=== PATIENT | male | born 1965 | race Caucasian/White ===

== ENCOUNTER 2022-12-13 09:43 | Outpatient (REF) | payer BC, SELFPAY ==
[2022-12-13 13:23] LABS: MANUAL DIFF FLAG NO
[2022-12-13 13:36] LABS: Basophils Percent Auto 0.6 % (0-2); Eosinophils Absolute Auto 0.3 X10*3/uL (0.0-0.4); Eosinophils Percent Auto 4.2 % (0-4); Hemoglobin 14.4 g/dl (14.0-18.0); Imm Gran Abs Auto 0.02 X10*3/uL (0.00-0.03); Imm Gran Pct Auto 0.3 % (0.0-0.4); Lymphocytes Absolute Auto 1.5 X10*3/uL (1.2-4.9); Lymphocytes Percent Auto 24.5 % (20-40); Mean Corpuscular HGB Conc 34.3 g/dl (31.0-36.0); Mean Corpuscular Hemoglobin 28.3 pg (27.0-33.0); Mean Corpuscular Volume 82.7 fL (80.0-98.0); Mean Platelet Volume 11.9 fL (9.4-12.4); Monocytes Absolute Auto 0.5 X10*3/uL (0.1-1.2); Monocytes Percent Auto 8.2 % (2-11); Neutrophils Absolute Auto 3.9 x10*3/uL (2.0-8.3); Neutrophils Percent Auto 62.2 % (45-73); Platelet Count 293 X10*3/uL (160-400); Red Blood Count 5.08 X10*6/uL (4.60-5.80); Red Cell Distribution Width 13.4 % (11.0-16.0); White Blood Count 6.3 X10*3/uL (4.8-10.8)
[2022-12-13 13:50] LABS: Alanine Aminotransferase 22 U/L (0-40); Albumin Level 4.5 g/dL (3.5-5.0); Alkaline Phosphatase 77 U/L (39-117); Anion Gap 14 (12-20); Aspartate Amino Transferase 22 U/L (5-37); Bilirubin Total 0.5 mg/dL (0.0-1.0); Blood Urea Nitrogen 12 mg/dL (9-16); Calcium 9.8 mg/dL (8.4-10.2); Carbon Dioxide 25 mmol/L (22-29); Chloride 106 mmol/L (96-108); Estimated Glomerular Filt Rate > 60; Glucose Random 96 mg/dL (60-115); Potassium 4.4 mmol/L (3.3-5.1); Sodium 141 mmol/L (135-145); Total Protein 7.2 g/dL (6.5-8.0); Uric Acid 5.1 mg/dL (3.4-7.0)
[2022-12-13 14:12] LABS: Prostate Specific Antigen 0.73 ng/mL (<0.05-4.0)
== END 2022-12-13 09:44 | disposition home or self-care (01) ==
LOC: HO.MANLDS 09:43
PROVIDERS: Visit Provider Physician Assistant
DX: Z12.5 Encounter for screening for malignant neoplasm of prostate (principal); I10 Essential (primary) hypertension; M10.00 Idiopathic gout, unspecified site
CPT/HCPCS: 36415; 80053; 84153; 84550; 85025

== ENCOUNTER 2024-04-16 11:00 | Outpatient (REF) | payer BC, SELFPAY ==
[2024-04-16 13:41] LABS: MANUAL DIFF FLAG NO
--- OUTSIDE RECORDS SUMMARY | 2024-04-16 13:42 | XMS_ITS | Encounter Summary ---
Author Name [facility] [facility] Address [address] [place] [address] Care Team Providers Care Lisw Name Role Phone CRISPIN BRAVO Primary Care Provider Unavaila ble Insurance Providers: All historical and current Section Date Range: From patient's date of to the date document was created. This section includes the names of all active insurance providers for the patient. Insurance Provider Type of Coverage Plan Name Start of Policy Coverage End of Policy Coverage Group Number Member ID Insurance Provider's Telephone Number Policy Garcia's Name Patient's Relationship to Policy Garcia [facility] CE ORGANIZAT ION [facility] MATER IALS Jun 05, 2017 [id number] JAMES LIN JR PATIENT ANTHEM BCBS OF [facility] CE ORGANIZ [facility] ASPHA LT Jun 05, 2017 [id number] JAMES LIN JR PATIENT ANTHEM BCBS OF [facility] (BLUECARD) [facility] CE ORGANIZAT ION [facility] MATER IALS Jun 05, 2017 [id number] JAMES LIN JR PATIENT BCBS [facility] CE ORGANIZAT ION [facility] CONST RUCT Jun 05, 2017 [id number] JAMES LIN JR PATIENT [place] PRESCRIPT ION [place] Feb 13, 2022 [id number] LIEN LIN PATIENT [place] PRESCRIPT [facility]ON [facility] Jun 05, 2017 [id number] JAMES LIN JR PATIENT Selected Encounter This section includes the information on record at [place] for the Encounter. Date/Time Encounter Type Encounter Description Reason Provider Source Apr 03, 2024 10:29 AM NQHP OL DIG ASSMT&MGMT 5-10 CLINICAL PHARMACY ICD-10-CM R04.0 Epistaxis DEB COLE Encounter Template Text not used by [place] Assessments - Encounter Diagnoses This section includes the primary and secondary diagnoses documented for the Encounter. Date/Time Primary/Secondary Diagnosis Diagnosis Name Provider Source Apr 03, 2024 10:30 AM PRIMARY Epistaxis DEB COLE RHINEBECK Plan of Treatment: Future Appointments (+ 6 months) and Future Tests (+/- 45 days) The Plan of Treatment section includes future care activities for the patient from all [place] treatmentfacilities. This section includes future appointments and future orders which are active, pending or scheduled. Future Appointments This section includes appointments that were scheduled to occur 6 months from the date of the Encounter, up to a maximum of 20 appointments. The data comes from all [place] treatment facilities. Appointment Date/Time Appointment Type Appointme nt Facility Name Apr 12, 2024 08:00 AM AMBULATORY - REHAB [facility] May 08, 2024 09:00 AM AMBULATORY - REH[facility] MEDICIN E [facility] Encounter Notes: All associated encounter notes This section contains the clinical notes associated to the Encounter. Date/Time Encounter Note(s) Provider Source Apr 03, 2024 10:29 AM MEDICATION MGT CON SULT: LOCAL TITLE: CONSULT REPORT/NON FORMULARY PADR STANDARD TITLE: MEDICATION MGT CONSULT DATE OF NOTE: APR 03, 2024@10:29 ENTRY DATE: APR 03, 2024@10:30 AUTHOR: DEB COLE EXP COSIGNER: URGENCY: STATUS: COMPLETED The medical record has been reviewed with regard to this restricted drug request. Medication requested: SODIUM CHLORIDE NASAL GEL Medication indication: Epistaxis Medical history relevant to this request: Followed by ENT. Requesting both spray + gel. The request is approved - A documented therapeutic failure of the preferred formulary alternative(s) exists /jozef/ Deb Cole PharmD Clinical Pharmacy Practitioner Signed: 04/03/2024 10:30 DEB COLE
--- OUTSIDE RECORDS SUMMARY | 2024-04-16 13:42 | XMS_ITS | Continuity of Care Document ---
Author Organization [facility] Address [address] [place] [address] [place] [address] Assessment No assessment recorded. Plan of Treatment Reminders Order Date Submit Date Provider Last Modified By Organization Details Last Modified Time Details Appointments FOLLOW UP 15 2024 10:45A M WANDY ROMAN Not available Not available Not available Lab PSA, total + free, serum or plasma 2024 025 [facility], [address] [place] [address], [id number], 04/16/2024 10:46:45 CMP, serum or plasma 2024 025 [facility], [address] [place] [address], [id number], 04/16/2024 10:46:45 CBC w/ auto diff 2024 025 [facility], [address] [place] [address], [id number], 04/16/2024 10:46:45 lipid panel, blood 2024 025 [facility], [address] [place] [address], [id number], 04/16/2024 10:53:17 hemoglobi n A1c, QN, blood 2024 025 [facility], [address] [place] [address], [id number], 04/16/2024 10:46:45 Referral None recorded. Procedures None recorded. Surgeries None recorded. Imaging None recorded. Medication Orders lisinopri l 5 mg tablet 2024 025 [facility] [place], [id number], 04/16/2024 10:44:29 Patient TargetsNo targets recorded. Patient InstructionsNo instructions recorded. Reason for Referral None Reported. Problems Name Problem SNOMED Code Status Onset Date Resolution Date Notes Provider Name and Address Organization Details Recorded Time Osteoart [facility]ritis 310399030 [facility] 8 16:37:03 Hypercho lesterol emia 02808250 Active 2017 Vandana toscano [facility] 8 16:37:15 Gout 16222900 Active 2017 [facility] 8 16:37:21 Blood in urine 71184178 [facility] 8 16:37:34 Solitary nodule of lung 961393050 Active 2018 4 mm incidenta lly seen on CT of abd/pelv done by maggie [address], [address], [facility] 9 14:10:00 Microsco pic hematuri a 975969249 Active 2018 has had urologic work up [address], [address], [facility] 9 10:21:09 Body mass index 25-29 - overweig ht 573104663 Active [address], [address], [facility] 9 10:26:41 [facility] hyperten wendy 01282181 Active 12/10/ 2019 Margarita Katrin, [address], [address], [facility] 9 10:26:44 Problem Notes None recorded. Procedures Surgical History Date Name Laterality Status Provider Name and Address Organization Details Recorded Time Remove tonsils and adenoids completed Margarita [facility] [address], [address], [facility] 01/22/2019 10:25:49 Knee arthroscopy/s urgery completed Margarita [address], [address], [facility] 01/22/2019 10:25:59 Imaging Results None recorded. Procedure Notes None recorded. Medical Equipment None Reported. Allergies Allergen ID Allergen Name Allergen Category Reaction Reaction Severity Criticality Documentation Date Start Date Code Code System Note Provider Name and Address Organization Details Recorded Time 2458 pravastat in medicatio n confusion Not available Not available 12/08/2017 74147 RxNorm memor y loss [facility] 8 15:39:32 Medications Name Sig Start Date Stop Date Status Note LastModified by Organization Details LastModified Time allopurinol 300 mg tablet TAKE 1 TABLET BY MOUTH ONCE DAILY active Not Available Not Available No t Available pravastatin 20 mg tablet TAKE ONE TABLET BY MOUTH ONCE DAILY 12/08 completed Not Available Not Available Not Available lisinopril 5 mg tablet TAKE 1 TABLET BY MOUTH ONCE DAILY 2024 active Not Available Not Available Not Avai lable Aleve Take two tablets once a day active Not Available Not Available No t Available Fish Oil 680mg Take one tablet once a day active Not Available Not Available No t Available multivitami n qd active Not Available Not Available Not Available CoQ-10 Take one tablet once a day 01/01 completed Not Available Not Available Not Available Probiotic Take one tablet once a day active Not Available Not Available No t Available Shingrix (PF) 50 mcg/0.5 mL intramuscul ar suspension, kit PHARMACIS T ADMINISTE RED IMMUNIZAT ION ADMINISTE RED AT TIME OF DISPENSIN G 12/26 completed Not Available Not Available Not Available Vitals Date Recorded Body height Body mass index (BMI) Body weight Heart rate Oxygen saturation Oxygen saturation in Arterial blood by Pulse oximetry Systolic blood pressure Diastolic blood pressure Provider Name and Address Organization Details Last Updated DateTime 5 172.72 cm 29.2 kg/m2 40647.7 4 g 66 /min 98 % 98 % 118 mm[Hg] 66 mm[Hg] Mando Angulo [facility] 5 10:38:53 Social History Question Answer Notes LastModified by Organizat ion Details LastModified Time Tobacco Smoking Status Former Smoker Not Available [employer] 12/17/2019 03:36:23 Do You Or Have You Ever Used E-cigarettes Or Vape? Never Used Electronic Cigarettes [email or web address] Information not available 04/23/2021 What Was The Date Of Your Most Recent Tobacco Screening? 04/16/2024 [email or web address] Information not available 04/16/2024 Do You Or Have You Ever Used Smokeless Tobacco? Former Smokeless Tobacco User [email or web address] Information not available 04/23/2021 How Much Tobacco Do You Smoke? 1 [id number] [id number] Information not available 12/17/2019 How Many Years Have You Smoked Tobacco? 15 [id number] Information not available 12/17/2019 Sex: Unknown Functional Status None recorded. Mental Status None recorded. Family History Relationship Description Onset Age of this Age Resolved Age Notes LastModified by Organization Details LastModified Time Unspecified Relation Coronary arterioscler osis Not early onset [email or web address] Not available 01/21/2019 16:55:55 Medical History No medical history recorded. Immunizations Vaccine Type Date Status Note Provider Nam e and Address Organization Details Recorded Time Tdap 4 completed Vandana toscano [facility] 11/01/2017 12:03:52 Influenza, split virus, quadrivalent, preservative 4 completed Sonam Gencarelle [place] [facility] 04/23/2021 13:23:52 zoster recombinant 0 completed Sonam Gencarelle [place] [facility] 04/23/2021 13:23:52 zoster, unspecified formulation 1 completed Sonam Gencarelle [place] [facility] 04/23/2021 13:23:52 Past Encounters Encounter ID Performer Location Encounter Start Date Encounter Closed Date Diagnosis/Indication Diagnosis SNOMED-CT Code Diagnosis ICD10 Code Diagnosis Note [id number] WANDY ROMAN [facility] [address] [facility],[address] [address] 04/16/2024 10:29:14 04/16/2024 10:48:47 Essential hypertension 14713872 I10 BP good todayrecom mended fu bw, overdue, hasn't had it drawn in two years Screening for malignant neoplasm of prostate 859747530 Z12.5 needs routine screening for his PSA Diabetes m ellitus screening 127714194 Z13.1 screening check Health Concerns Section Related Observation LastModified by Organization Detai ls LastModified Time None Recorded Concern Status LastModified by Organization Details LastModified Time None Recorded Payers Encounter Date Sequence Insurance Name Policy Number Policy Garcia Covered Member ID Garcia Member ID Guarantor Name 04/16/2024 1 [facility]: [facility] [id number] Elan Rendon [id number] Elan Rendon Notes Date Note Type Note Provider Name a nd Address Organization Details Recorded Time 04/16/2024 text/html f/u BP HTN: today in the office the patient BP is 118/66 L arm sitting the patient is doing well on the BP medication with no side effects and no adjustment of their medications needed today at the appointment well-controlled on medication denies chest pain, sob, ankle swelling, orthopnea, palpitations needs routine screening BW, patient agrees, given order to bring to our lab to have drawn no questions or concerns today at this time WANYD ROMAN [address] [facility] [facility], [place], [address], [facility] 04/16/2024 10:48:46
--- OUTSIDE RECORDS SUMMARY | 2024-04-16 13:42 | XMS_ITS | Encounter Summary ---
Author Name [facility] [place] [facility] [place] Address [address] [place] [address] Care Team Providers Care Computer Repairer Name Role Phone GONZALO BRAVO Primary Care Provider Unavaila ble Insurance [...] Garcia's Name Patient's Relationship to Policy Garcia [facility]LY [facility] CE ORGANIZAT ION [facility] MATER IALS Jun 05, 2017 [id number] [phone] JAMES LIN JR PATIENT ANTHEM [facility] CE ORGANIZ [facility] ASPHA LT Jun 05, 2017 [id number] JAMES LIN JR PATIENT ANTHEM [facility] CE ORGANIZAT ION [facility] MATER IALS Jun 05, 2017 [id number] JAMES LIN JR [facility] CONST RUCT Jun 05, 2017 [id number] JAMES LIN JR PATIENT [place] PRESCRIPT ION [place] Feb 13, 2022 [id number] [phone] LIEN LIN PATIENT [place] PRESCRIPT [facility]ON [facility] Jun 05, 2017 [id number] [phone] JAMES LIN JR PATIENT Selected Encounter This section includes the information on record at [place] for the Encounter. Date/Time Encounter Type Encounter Description Reason Provider Source Feb 05, 2024 08:30 AM OFFICE O/P EST HI 40 MIN PRIMARY CARE/MEDICINE ICD-10-CM H93.12 Tinnitus, left ear BRAVO,RODGER Araiza IHE Encounter Template Text not used by [place] Assessments - Encounter Diagnoses This section includes the primary and secondary diagnoses documented for the Encounter. Date/Time Primary/Secondary Diagnosis Diagnosis Name Provider Source Mar 03, 2024 12:51 PM PRIMARY Tinnitus, left ear BRAVO,WILL SUKHWINDER J [place] [facility] [place] [facility] Mar 03, 2024 12:51 PM SECONDARY Essential (primary) hypertension [facility] [place] [facility] Mar 03, 2024 12:51 PM SECONDARY Gout, unspecified BRAVO,WILL SUKHWINDER J [place] [facility] [place] [facility] Mar 03, 2024 12:51 PM SECONDARY Hyperlipidemia, unspecified BRAVO,WILL SUKHWINDER J [place] [facility] [place] [facility] Mar 03, 2024 12:51 PM SECONDARY Tobacco use BRAVO,WILL [facility] [place] [facility] Plan of Treatment: Future Appointments (+ 6 months) and Future Tests (+/- 45 days) The Plan of Treatment section includes future care activities for the patient from all [place] treatmentfacilities. This section includes future appointments and future orders which are active, pending or scheduled. Future Appointments This section includes appointments that were scheduled to occur 6 months from the date of the Encounter, up to a maximum of 20 appointments. The data comes from all [place] treatment facilities. Appointment Date/Time Appointment Type Appointme nt Facility Name Feb 27, 2024 09:30 AM AMBULATORY - MEDICINE [facility] [place] [facility] Apr 03, 2024 09:00 AM AMBULATORY - MEDICINE [facility] [place] [facility] Apr 12, 2024 08:00 AM AMBULATORY - [place]ICIN [place] [facility] [place] [facility] May 08, 2024 09:00 AM AMBULATORY - REHAB MEDICIN E [facility] Lab Results: +/- 30 days of the encounter This section includes the Chemistry and Hematology Lab Results on record with [facility] for the patient. Radiology Reports and Pathology Reports are provided separately, in subsequent sections. Lab Results This section contains the Chemistry/Hematology Results that were resulted 30 days before or 30 daysafter the date of the Encounter. Date/Time Source Result Type Result - Unit Interpretation Reference Range Comment Feb 05, 2024 09:00 AM [facility] HEPATITIS B SURFACE ANTIBODY (HBsAb)-WH Specimen Type: SERUM No comment entered. Ordering Provider: ANGELICA BRAVO Report Released Date/Time: Jan 23, 2024 04:02 PM Reporting Lab: [address] [address] Performing Lab: [address] [address] HBsAb Non Reactive Non Reactive Feb 05, 2024 09:00 AM [facility] CBC Specimen Type: BLOOD No comment entered. Ordering Provider: ANGELICA BRAVO Report Released Date/Time: Jan 23, 2024 04:02 PM Reporting Lab: [address] [address] Performing Lab: [address] [address] WBC 7.95 10*3/uL 4.50-11.00 RBC 5.14 10*6/uL 4.23-5.66 HGB 14.9 g/dL 12.8-17 HCT 42.4 39.2-50.4 MCV 82.5 fL 82-99 MCHC 35.1 g/dL 30.8-35.1 PLT 298 10*3/uL 140-360 RDW-CV 12.7 12.0-16.0 MCH 29.0 pg 26.2-32.6 Feb 05, 2024 09:00 AM [facility] BASIC METABOLIC PANEL (non-fasting) Specimen Type: SERUM No comment entered. Ordering Provider: ANGELICA BRAVO Report Released Date/Time: Jan 23, 2024 04:02 PM Reporting Lab: [facility] [address] [address] Performing Lab: [facility] [address] [address] UREA NITROGEN 17 mg/dL 7-25 GLUCOSE 88 mg/dL 65-100 SODIUM 139 mmol/L 135-145 POTASSIUM 4.8 mmol/L 3.5-5.0 CHLORIDE 104 mmol/L 100-110 CO2 26 meq/L 20-30 CREATININE, Serum 0.94 mg/dL 0.50-1.40 eGFR(CKD-EPI 2020) >90 mL/min >60 Feb 05, 2024 09:00 AM [facility] LIPID PANEL, NON FASTING Specimen Type: SERUM No comment entered. Ordering Provider: ANGELICA BRAVO Report Released Date/Time: Jan 23, 2024 04:02 PM Reporting Lab: [address] [address] Performing Lab: [address] [address] CHOLESTEROL 264 mg/dL H TRIGLYCERIDE 214 mg/dL H 0-150 LDL calculated 171 mg/dL H 0-129 CHOL/HDL 5.3 HDL CHOLESTEROL 50 mg/dL 40-60 Feb 05, 2024 09:00 AM [facility] LIVER FUNCTION Specimen Type: SERUM No comment entered. Ordering Provider: ANGELICA BRAVO Report Released Date/Time: Jan 23, 2024 04:02 PM Reporting Lab: [facility] [address] [address] Performing Lab: [address] [address] PROTEIN,TOTAL 7.3 g/dL 6.0-8.3 ALBUMIN 4.3 g/dL 3.5-5.0 ALKALINE PHOSPHATASE 67 U/L 40-150 AST 21 U/L 5-34 ALT 24 U/L BILIRUBIN, TOTAL 0.5 mg/dL 0.2-1.2 Feb 05, 2024 09:00 AM [facility] PSA Specimen Type: SERUM No comment entered. Ordering Provider: ANGELICA BRAVO Report Released Date/Time: Jan 23, 2024 04:02 PM Reporting [facility]: [facility] [address] [address] Performing Lab: [facility] [address] [address] PSA 0.81 ng/mL 0.00-4.00 Vital Signs: All taken on the encounter date This section contains inpatient and outpatient Vital Signs collected on the date of the Encounter. Date/Time Temperature Pulse Blood Pressure Respiratory Rate SP02 Pain Height Weight Body Mass Index Source Feb 05, 2024 08:44 AM 138/78 [place] [facility] [facility] Feb 05, 2024 08:20 AM 97.6 72 140/89 20 100 0 68 192 29 [place] [facility] Social History: Smoking Status (Most current) and Tobacco Use (All prior to encounter date) This section includes the most current, and the historical, smoking and tobacco- related health factors from the [place] facility where the Encounter took place. Current Smoking Status This section includes the most current smoking, or tobacco-related health factor, from the [place] facility where the Encounter took place. Date/Time Current Smoking Status Comment Maday trejo Feb 05, 2024 08:30 AM VA-TOBACCO USE FOR AME CIGARETTES [facility] Tobacco Use History This section includes a history of the smoking, or tobacco-related health factors, that were collected on or before the date of the Encounter. The data comes from the [place] facility where the Encounter took place. Date/Time Smoking Status/Tobacco Use Comment F acblanca Feb 05, 2024 08:30 AM VA-TOBACCO USE FOR AME CIGARETTES [place] [facility] [place] [facility] Feb 02, 2023 08:30 AM VA-TOBACCO FORMER USER [place] [facility] [place] [facility] Feb 02, 2023 08:30 AM VA-TOBACCO QUIT 15 YRS OR MORE [place] [facility] Jan 28, 2022 08:30 AM VA-TOBACCO FORMER USER [place] [facility] [place] [facility] Jan 28, 2022 08:30 AM VA-TOBACCO QUIT 5 TO < 15 YRS [facility] [place] [facility] Jan 29, 2021 08:30 AM VA-TOBACCO FORMER USER [place] [facility] [place] [facility] Jan 29, 2021 08:30 AM VA-TOBACCO QUIT 5 TO < 15 YRS [facility] [place] [facility] Feb 22, 2019 01:36 PM VA-TOBACCO FORMER USER [facility] [place] [facility] Feb 22, 2019 01:36 PM VA-TOBACCO QUIT 5 TO < 15 YRS [place] [facility] [place] [facility] Encounter Notes: All associated encounter notes This section contains the clinical notes associated to the Encounter. Date/Time Encounter Note(s) Provider Source Feb 05, 2024 08:41 AM PRIMARY CARE NURSE PRACTITIONER OUTPATIENT NOTE: LOCAL TITLE: NURSE PRACTITIONER OUTPATIENT NOTE STANDARD TITLE: PRIMARY CARE NURSE PRACTITIONER OUTPATIENT NOTE DATE OF NOTE: FEB 05, 2024@08:41 ENTRY DATE: FEB 05, 2024@08:41:14 AUTHOR: GONZALO BRAVO COSIGNER: URGENCY: STATUS: COMPLETED Chief complaint: Patient is a 58 year old . HPI: Pleasant male here to follow up, comes yearly, has non va PCP. Allergies: PRAVASTATIN The following VA and Non-VA meds were reconciled with patient. The patient was educated on the use of the medications including indication and side effects. Active and Recently Outpatient Medications (excluding Supplies): Active Non-VA Medications Status === 1) Non-VA ALLOPURINOL 300MG TAB 300MG BY MOUTH ONCE DAILY ACTIVE 2) Non-VA FISH OIL 1000MG (500MG DHA/EPA) CAP 1000MG BY MOUTH ACTIVE ONCE DAILY 3) Non-VA LISINOPRIL 5MG TAB 5MG BY MOUTH ONCE DAILY ACTIVE 4) Non-VA MULTIVITAMIN CAP/TAB 1 TABLET BY MOUTH ONCE DAILY ACTIVE Review of Systems: Constitutional: (-)for Fevers, chills, weakness, nights sweats On examination: 97.6 F [36.4 C] (02/05/2024 08:20)140/89 (02/05/2024 08:20)72 (02/05/2024 08:20)20 (02/05/2024 08:20)0 (02/05/2024 08:20)BMI: 29.3192 lb [87.09 kg] (02/05/2024 08:20) is alert and oriented X3 Cardiovasc: 2plus carotids without bruits, no JVD Heart Reguler rate and rhythm NL S1S2 no S3 or murmur Respiration: Normal respiratory effort, lungs clear ABD: Benign normal active bowel sounds no HSM no rebound or referred pain EXT: no clubbing, edema, or cyanosis All diagnostics from past month were reviewed with patient. Assessment/plan: Active problems - Computerized Problem List is the source for the followin. Low Back Pain ([facility] [id number]) - Stays active. 2. HTN - Hypertension ([facility] [id number]) - repeat 138/78 3. Tobacco User ([facility] [id number]) - quit 15 years ago 4. Hyperlipidemia ([facility] [id number]) - did not tolerate statin, discussed diet strats 5. Gout ([facility] [id number]) - contolled with allopurinol 6. Tinnitus - was seen by [facility], they recommended MRI, i will order this and refer him to [place] [facility] for follow up. Health Care Maintenance: declines flu and covid vaccines. Today I spent 40 minutes on some or all of the following: chart review, history, physical examination, treatment planning, education and counseling of the patient/family/care manager cna, placing orders, communicating with other health care providers, completing health and wellness screenings (see below) and documentation in the electronic health record. Follow up visit in 12 mos. HTN Assess for Elevated BP>=140/90: Repeat blood pressure: 138/78 The patient's blood pressure is usually adequately controlled. No medication changes are indicated at this time. Sexual Orientation: The patient thinks of their sexual orientation as: Straight or Heterosexual PTSD Screening: PC-PTSD-5 A PTSD screening test (PC-PTSD-5) was negative (score=0). IN THE PAST MONTH, have you ever had any experience that was so frightening, horrible or traumatic. For example: A serious accident or fire a physical or sexual assault or abuse An earthquake or flood A war Seeing someone be killed or seriously injured Having a loved one through homicide or suicide 1. Have you ever experienced this kind of event? YES 2. Had nightmares about the event(s) or thought about the event(s) when you did not want to? NO 3. Tried hard not to think about the event(s) or went out of your way to avoid situations that reminded you of the event(s)? NO 4. Been constantly on guard, watchful, or easily startled? NO 5. Sutton numb or detached from people, activities, or your surroundings? NO 6. [place] guilty or unable to stop blaming yourself or others for the event(s) or any problems the event(s) may have caused? NO Medication Reconciliation: Outpatient: Has the patient been taking medications as documented in the EMLR? YES: The patient has been taking medications as documented in the EMLR. Essential Medication List for Review used to complete this medication reconciliation. INCLUDED IN THIS LIST: Alphabetical list of active outpatient prescriptions dispensed from this [place] (local) and dispensed from another [place] or [place] facility (remote) as well as inpatient orders (local, pending and active), local clinic medications, locally documented non-VA medications, and local prescriptions that have or been discontinued in the past 90 days. - All changes in medications, including all non-VA/Herbal/OTC medications were entered into CPRS. - If there were any medications the patient should no longer take, they were discontinued. - The patient/caregiver was instructed to update this list, discard old lists, and take this list to the next appointment, whether with a VA or non-VA provider. /jozef/ Gonzalo Bravo DNP, COPY OPERATOR-BC, CNL Primary Care Nurse Practitioner Signed: 02/05/2024 08:45 GONZALO BRAVO [place] [facility] [place] [facility] Feb 05, 2024 08:22 AM PREVENTIVE MEDICINE NURSING NOTE: LOCAL TITLE: CLINICAL REMINDERS/NURSING STANDARD TITLE: PREVENTIVE MEDICINE NURSING NOTE DATE OF NOTE: FEB 05, 2024@08:22 ENTRY DATE: FEB 05, 2024@08:22:43 AUTHOR: RAYA,GURDEEP EXP COSIGNER: URGENCY: STATUS: COMPLETED Advance Directive Screen MH AD: Patient does not have an Advance Directive completed and is requesting more information. A consult was sent to Social Work Services at this visit so that an appointment can be made with the patient to review the advance directive. The patient received education about Advance Directives and written notification of his/her rights. Suicide Screen: C-SSRS Screening [place]-Suicide Severity Rating Scale (C-SSRS Screener) 1. Over the past month, have you wished you were or wished you could go to sleep and not wake up? No 2. Over the past month, have you had any actual thoughts of killing yourself? No 3. Over the past month, have you been thinking about how you might do this? Response not required due to responses to other questions. 4. Over the past month, have you had these thoughts and had some intention of acting on them? Response not required due to responses to other questions. 5. Over the past month, have you started to work out or worked out the details of how to kill yourself? Response not required due to responses to other questions. 6. If yes, at any time in the past month did you intend to carry out this plan? Response not required due to responses to other questions. 7. In your lifetime, have you ever done anything, started to do anything, or prepared to do anything to end your life (for example, collected pills, obtained a gun, gave away valuables, went to the roof but didn't jump)? No 8. If YES, was this within the past 3 months? Response not required due to responses to other questions. Homelessness/Food Insecurity Screen: In the past 2 months, have you been living in stable housing that you own, rent, or stay in as part of a household? Yes - Living in stable housing. Are you worried or concerned that in the next 2 months you may NOT have stable housing that you own, rent, or stay in as part of a household? No - Not worried about housing near future The reports the following: Within the past 12 months, you worried whether your food would run out before you got money to buy more. Never true Within the past 12 months, the food you bought just didn't last and you didn't have money to get more. Never true Depression Screening: Perform PHQ-2 A PHQ-2 screen was performed. The score was 0 which is a negative screen for depression. Over the past two weeks, how often have you been bothered by the following problems? 1. Little interest or pleasure in doing things Not at all 2. Feeling down, depressed, or hopeless Not at all Tobacco Use Screening: The patient is a former cigarette smoker. The patient has never used other types of tobacco. Alcohol Use Screen (AUDIT-C): Alcohol Screen: SCREEN FOR ALCOHOL (AUDIT-C) An alcohol screening test (AUDIT-C) was negative (score=1). 1. How often did you have a drink containing alcohol in the past year? Consider a drink to be a 12 ounce can or bottle of regular beer, 8 ounces of malt liquor, a 5 ounce glass of table wine, or a 1.5 ounce shot of liquor (like scotch, gin, or vodka). Monthly or less 2. How many drinks containing alcohol did you have on a typical day when you were drinking in the past year? One or two drinks 3. How often did you have six or more drinks on one occasion in the past year? Never /jozef/ Gurdeep [facility] Orthotist/Prosthetist HOT DIP TINNING SUPERVISOR,PRIMARY CARE Signed: 02/05/2024 08:24 GURDEEP DOS SANTOS [facility]
--- OUTSIDE RECORDS SUMMARY | 2024-04-16 13:42 | XMS_ITS | Encounter Summary ---
Author Name [facility] [facility] [place] Address [address] [place] [address] Care Team Providers Care Electrical Tech Name Role Phone CRISPIN BRAVO Primary Care [...] Garcia's Name Patient's Relationship to Policy Garcia [facility] ORGANIZAT ION [facility] MATER IALS Jun 05, 2017 [id number] [phone] JAMES LIN JR PATIENT ANTHEM [facility] ORGANIZ [facility] ASPHA LT Jun 05, 2017 [id number] JAMES LIN JR PATIENT ANTHEM [facility] [place] (BLUECARD) [facility] CE ORGANIZAT ION [facility] MATER IALS Jun 05, 2017 [id number] [phone] JAMES LIN JR PATIENT BCBS [facility] CE ORGANIZAT ION [facility] CONST RUCT Jun 05, 2017 [id number] [phone] JAMES LIN JR PATIENT [place] PRESCRIPT ION [facility] [place] Feb 13, 2022 [id number] [phone] LIEN LIN PATIENT [place] PRES[employer] [facility] [place] [facility] Jun 05, 2017 [id number] [phone] JAMES LIN JR PATIENT Selected Encounter This section includes the information on record at [place] for the Encounter. Date/Time Encounter Type Encounter Description Reason Provider Source Apr 12, 2024 08:00 AM HEARING AID XM&SLCTN [facility] AUDIOLOGY ICD-10-CM H90.3 Sensorineural hearing loss, bilateral BUSTOS,KIMBERL Y AISHA IHE Encounter Template Text not used by [place] Assessments - Encounter Diagnoses This section includes the primary and secondary diagnoses documented for the Encounter. Date/Time Primary/Secondary Diagnosis Diagnosis Name Provider Source Apr 12, 2024 08:29 AM PRIMARY Sensorineural hearing loss, bilateral BUSTOS[facility]KIM[facility]L [facility] Apr 12, 2024 08:29 AM SECONDARY Tinnitus, bilateral BUSTOS,KIMBERL Y AISHA [facility] Plan of Treatment: Future Appointments (+ 6 months) and Future Tests (+/- 45 days) The Plan of Treatment section includes future care activities for the patient from all [place] treatmentfacilities. This section includes future appointments and future orders which are active, pending or scheduled. Future Appointments This section includes appointments that were scheduled to occur 6 months from the date of the Encounter, up to a maximum of 20 appointments. The data comes from all [place] treatment facilities. Appointment Date/Time Appointment Type Appointme nt Facility Name May 08, 2024 09:00 AM AMBULATORY - REHAB MEDICIN E [facility] Social History: Smoking Status (Most current) and Tobacco Use (All prior to encounter date) This section includes the most current, and the historical, smoking and tobacco- related health factors from the [facility] facility where the Encounter took place. Current Smoking Status This section includes the most current smoking, or tobacco-related health factor, from the [place] facility where the Encounter took place. Date/Time Current Smoking Status Comment Facil ity Feb 05, 2024 08:30 AM VA-TOBACCO USE FOR AME CIGARETTES [facility] Tobacco Use History This section includes a history of the smoking, or tobacco-related health factors, that were collected on or before the date of the Encounter. The data comes from the [place] facility where the Encounter took place. Date/Time Smoking Status/Tobacco Use Comment F acility Feb 05, 2024 08:30 AM VA-TOBACCO USE FOR AME CIGARETTES [facility] [place] [facility] Feb 02, 2023 08:30 AM VA-TOBACCO FORMER USER [facility] [place] [facility] Feb 02, 2023 08:30 AM VA-TOBACCO QUIT 15 YRS OR MORE [facility] [place] [facility] Jan 28, 2022 08:30 AM VA-TOBACCO FORMER USER [facility] [place] [facility] Jan 28, 2022 08:30 AM VA-TOBACCO QUIT 5 TO < 15 YRS [facility] [place] [facility] Jan 29, 2021 08:30 AM VA-TOBACCO FORMER USER [facility] [place] [facility] Jan 29, 2021 08:30 AM VA-TOBACCO QUIT 5 TO < 15 YRS [facility] [place] [facility] Feb 22, 2019 01:36 PM VA-TOBACCO FORMER USER [facility] [place] [facility] Feb 22, 2019 01:36 PM VA-TOBACCO QUIT 5 TO < 15 YRS [facility] [place] [facility] Encounter Notes: All associated encounter notes This section contains the clinical notes associated to the Encounter. Date/Time Encounter Note(s) Provider Source Apr 12, 2024 07:12 AM AUDIOLOGY E & M NOTE: LOCAL TITLE: AUDIOLOGY CLINIC STANDARD TITLE: AUDIOLOGY E & M NOTE DATE OF NOTE: APR 12, 2024@07:12 ENTRY DATE: APR 12, 2024@07:12:43 AUTHOR: SONIYA BUSTOS COSIGNER: URGENCY: STATUS: COMPLETED Dx CODE: H90.3-Sensorineural Hearing Loss, Bilateral APPOINTMENT TYPE: Hearing Re-Evaluation and Hearing Aid Selection BACKGROUND/HISTORY: Rosman was seen 04/12/24 for a hearing re-evaluation and hearing aid selection appointment, unaccompanied. has a longstanding history of asymmetrical sensorineural hearing loss, left ear poorer. He was medically cleared for amplification by ENT Dr. Stallworth on 04/03/24. His last hearing evaluation was on 02/21/19 and he believes his hearing has declined slightly since then. He reports longstanding bilateral tinnitus, left ear worse. He denies concerns of vertigo. Medical history includes: Active problems - Computerized Problem List is the source for the followin. Snoring 2. Low Back Pain ([facility] [id number]) 3. Multiple nodules of lung 4. HTN - Hypertension ([facility] [id number]) 5. Tobacco User ([facility] [id number]) 6. Hyperlipidemia ([facility] [id number]) 7. Gout ([facility] [id number]) 8. Knee Pain ([facility] [id number]) 9. Hematuria 10. Family history of ischemic heart disease 11. Hearing Loss ([facility] [id number]) 12. Tinnitus ASSESMENT: Results of today's testing are as follows: Otoscopy was WNL bilaterally. Pure tone audiometric testing using inserts in the right ear revealed hearing WNL through 2 kHz sloping to a moderate SNHL. Testing in the left ear revealed hearing WNL through 1 kHz sloping to a severe SNHL. Asymmetry from 2kHz-8kHz, left ear poorer. SRT WORD RECOGNITION (Recorded [place] [facility] / Word List) Right 10dBHL 96% @ 60dBHL/35dBm Left 20dBHL 96% @ 70dBHL/45dBm No significant changes were found when compared to the 02/21/19 audiological evaluation. HEARING AID SELECTION: Different hearing aid options were discussed. He is interested in rechargeable devices and does not have a pacemaker. He has an Android and may be interested in Bluetooth technology. [employer] Intent 1 miniRITE Rs were selected and ordered in [facility] to be used with [facility]. EDUCATION/COUNSELING: The patient was counseled re: today's hearing test results. He demonstrated satisfactory understanding of the education and plan, and was given the opportunity to ask questions throughout today's visit. PLAN: 1. RTC in about 1 month for 60 minute hearing aid fitting appointment. 2. Hearing re-evaluation in 3-5 years, or sooner if change in hearing occurs. Patient Education Education provided on the following topics: Hearing test results Education provided to: P Response to Education: VU Woo Patient P Family F Significant Other SO Verbalizes Understanding VU Returns Demonstration RD Performs Independently PI Lacks Comprehension LC Refused Education RE Not Applicable NA /jozef/ SONIYA BUSTOS STAFF POLICE LIAISON OFFICER Signed: 04/12/2024 08:43 S[facility]OS [facility]
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
--- OUTSIDE RECORDS SUMMARY | 2024-04-16 13:43 | XMS_ITS | Encounter Summary ---
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 ORGANIZ [facility] ASPHA LT Jun 05, 2017 [id number] JAMES LIN JR PATIENT ANTHEM BCBS OF [place] (BLUECARD) [facility] CE ORGANIZAT ION [facility] Jun 05, 2017 [id number] JAMES LIN JR PATIENT BCBS [facility] CE ORGANIZAT ION [facility] CONST RUCT Jun 05, 2017 [id number] [phone] JAMES LIN JR PATIENT [place] PRESCRIPT ION [facility] [place] Feb 13, 2022 [id number] [phone] LIEN LIN PATIENT [place] PRESCRIPT ION [facility] Jun 05, 2017 [id number] JAMES LIN JR PATIENT Selected Encounter This section includes the information on record at [place] for the Encounter. Date/Time Encounter Type Encounter Description Reason Provider Source Apr 03, 2024 09:00 AM OFF/OP CONSLTJ NEW/EST HI 55 OTOLARYNGOLOGY/ENT ICD-10-CM H93.12 Tinnitus, left ear AB STALLWORTH E Encounter Template Text not used by [place] Assessments - Encounter Diagnoses This section includes the primary and secondary diagnoses documented for the Encounter. Date/Time Primary/Secondary Diagnosis Diagnosis Name Provider Source Apr 03, 2024 10:17 AM PRIMARY Tinnitus, left ear AB STALLWORTH [facility] Apr 03, 2024 10:17 AM SECONDARY Epistaxis AB STALLWORTH [facility] Apr 03, 2024 10:17 AM SECONDARY Snsrnrl hear loss, uni, l ear, with rstrcd hear cntra side AB STALLWORTH [facility] Apr 03, 2024 10:17 AM SECONDARY Unspecified obstruction of Eustachian tube, bilateral AB STALLWORTH [facility] Plan of Treatment: Future Appointments (+ 6 months) and Future Tests (+/- 45 days) The Plan of Treatment section includes future care activities for the patient from all [place] treatmentfacilities. This section includes future appointments and future orders which are active, pending or scheduled. Future Appointments This section includes appointments that were scheduled to occur 6 months from the date of the Encounter, up to a maximum of 20 appointments. The data comes from all [place] treatment facilities. Appointment Date/Time Appointment Type Appointme nt Facility Name Apr 12, 2024 08:00 AM AMBULATORY - REHAB MEDICIN E [facility] May 08, 2024 09:00 AM AMBULATORY - REHAB MEDICIN E [facility] Vital Signs: All taken on the encounter date This section contains inpatient and outpatient Vital Signs collected on the date of the Encounter. Date/Time Temperature Pulse Blood Pressure Respiratory Rate SP02 Pain Height Weight Body Mass Index Source Apr 03, 2024 08:58 AM 98.1 100 128/82 16 99 0 68 192 29 [place] [facility] Social History: Smoking Status (Most current) and Tobacco Use (All prior to encounter date) This section includes the most current, and the historical, smoking and tobacco- related health factors from the [place] facility where the Encounter took place. Current Smoking Status This section includes the most current smoking, or tobacco-related health factor, from the [place] facility where the Encounter took place. Date/Time Current Smoking Status Comment Facil ity Feb 05, 2024 08:30 AM VA-TOBACCO USE FOR AME CIGARETTES [facility] Tobacco Use History This section includes a history of the smoking, or tobacco-related health factors, that were collected on or before the date of the Encounter. The data comes from the [place] facility where the Encounter took place. Date/Time Smoking Status/Tobacco Use Comment F acility Feb 05, 2024 08:30 AM VA-TOBACCO USE FOR AME CIGARETTES [facility] Feb 02, 2023 08:30 AM VA-TOBACCO FORMER USER [facility] Feb 02, 2023 08:30 AM VA-TOBACCO QUIT 15 YRS OR MORE [facility] Jan 28, 2022 08:30 AM VA-TOBACCO FORMER USER [facility] Jan 28, 2022 08:30 AM VA-TOBACCO QUIT 5 TO < 15 YRS [facility] Jan 29, 2021 08:30 AM VA-TOBACCO FORMER USER [facility] Jan 29, 2021 08:30 AM VA-TOBACCO QUIT 5 TO < 15 YRS [facility] Feb 22, 2019 01:36 PM VA-TOBACCO FORMER USER [facility] Feb 22, 2019 01:36 PM VA-TOBACCO QUIT 5 TO < 15 YRS [facility] Encounter Notes: All associated encounter notes This section contains the clinical notes associated to the Encounter. 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 59-year-old former smoker referred secondary to longstanding left epistaxis. He states that for more than 10 years he has noticed that he has left-sided ringing in his ear and decreased hearing. It has gotten worse over the last possibly 2 years. He had an audiogram in February 2019 and was referred to ENT. At that time they recommended an MRI of the IAC. There was some miscommunication and it was never done. Given that the tinnitus has worsened over the last year he spoke with his PCP who ordered an MRI. He had it in February but has not yet been told the results. He does notice that he has more difficulty hearing from that left side. He has no dizziness. He has no history of ear infections or ear surgeries. 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 Patient is right-handed. 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 Somewhat unrelated he states that intermittently he notices that his ears get plugged. He drinks 1 to 2 cups of coffee daily and states he drinks a lot of water daily. Unrelated he has intermittent epistaxis. He states that it is worse when the seasons are changing. It is always left-sided. It is spontaneous. He had a few drops this morning he states it occurs every few days. He has never had to seek medical treatment or been packed. He is not on any blood thinners. He has mild hypertension. He has not tried any conservative measures. 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 PMHx: Active problems - Computerized Problem List is the source for the followin. Snoring 2. Low Back Pain ([facility] [id number]) 3. Multiple nodules of lung 4. HTN - Hypertension ([facility] [id number]) 5. Tobacco User ([facility] [id number]) 6. Hyperlipidemia ([facility] [id number]) 7. Gout ([facility] [id number]) 8. Knee Pain ([facility] [id number]) 9. Hematuria 10. Family history of ischemic heart disease 11. Hearing Loss ([facility] [id number]) 12. Tinnitus Service Connected Disabilities with % Eligibility: SC LESS THAN 50% VERIFIED Total S/C %: 20 KNEE CONDITION 10% S/C KNEE CONDITION 10% S/C MEDS: Active Outpatient Medications (including Supplies): Non-VA ALLOPURINOL 300MG TAB 300MG BY MOUTH ONCE DAILY ACTIVE Non-VA FISH OIL 1000MG (500MG DHA/EPA) CAP 1000MG BY MOUTH ACTIVE ONCE DAILY Non-VA LISINOPRIL 5MG TAB 5MG BY MOUTH ONCE DAILY ACTIVE Non-VA MULTIVITAMIN CAP/TAB 1 TABLET BY MOUTH ONCE DAILY ACTIVE ALL: PRAVASTATIN Fam Hx: Non - contributory Soc Hx: FORMER SMOKER, STOPPED 15 YEARS AGO ROS: Denies any other relavent ROS Vitals Enter at: Apr 03, 2024@08:58:09 BP: 128/82 P: 100 R: 16 T: 98.1 192 lb [87.09 kg] (04/03/2024 08:58) BMI: 29.3 CONSTITUTION: GENERAL APPEARANCE:Well developed, well nourished and groomed. No apparent acute or chronic distress. HEAD, FACE, SALIVARY GLANDS AND TMJ: Palpation of Parotid and Submandibular glands: Normal. Facial Mobility: Normal. EAR, NOSE, MOUTH AND THROAT: Pinnas - normal. Otoscopic exam: RIGHT EAR: External auditory canal normal, tympanic membrane mobile LEFT EAR: External auditory canal normal, tympanic membrane mobile Nasal Interior: Turbinates and middle meatus - Inferior turbinates normal. +3 DEVIATION TO THE LEFT WITH SIGNIFICANT EXPOSED BLOOD VESSELS ON THE LEFT MID SEPTUM EVIDENCE OF RECENT BLEEDING. Lips, Teeth and Gums: Lips normal. Oral Cavity and Oropharynx: Oral mucosa with normal color and moisture. Anterior 2/3rds of tongue normal. Breath quality normal. Hard palate normal. Normal floor of mouth, Posterior pharynx normal. ABSENT TONSILS NECK AND THYROID: Neck: no adenopathy; no neck masses. RESPIRATORY: Respiratory effort normal. LYMPH NODES: Neck nodes: normal. NEUROLOGIC: Higher integrative functions: Normal orientation, memory, attention span and concentration, language, and fund of knowledge. Cranial nerves: Cranial nerves II-XII grossly intact and symmetrical. PSYCHIATRIC: Mood and affect: normal and appropriate to the situation. [facility] MRI of the brain with and without contrast with focus to IACs 02-27-2024 Findings: No CP angle tumor is seen. Bilateral 7th and 8th nerve complexes are normal in caliber and signal intensities. No abnormal enhancement is noted. There is no evidence of an acoustic schwannoma. The visualized brain parenchyma shows no acute pathology. There is no hydrocephalus. No definite abnormal enhancement after contrast. There are normal flow voids within major intracranial vessels. There is mild mucosal thickening within bilateral ethmoid and maxillary sinuses. Impression: Normal MRI of IACs with and without contrast. Assessment/Plan APR 03, 2024: 59-year-old male here for left-sided tinnitus and asymmetric left sensorineural hearing loss as well as left-sided intermittent epistaxis. Physical exam shows normal ear exam. Nasal exam shows a +3 deviation to the left with significant exposed vessels on the left septum and evidence of recent bleeding. 1. LEFT ASYMMETRIC SENSORINEURAL HEARING LOSS AND LEFT TINNITUS - Patient's MRI of the IAC showed no retrocochlear pathology. This was reviewed with the patient at length. I have recommended that he obtain a repeat audiogram as the previous audiogram is 5 years old. I placed this order today. Patient could benefit from amplification. Tinnitus strategies were also discussed. Patient already has many tinnitus strategies such as using a fan at night and having on background noise. He notices a lot when he is hunting because it is quiet. He is not so bothered by it at this time that he desires PTM but we discussed what PTM is and its availability should things change. 2. EPISTAXIS - patient does have significant dilated vessels on the left septum. Patient has not tried conservative therapy. I recommended and prescribed nasal gel to use nightly, nasal spray to use 3 times daily and humidification of his bedroom. I recommended he try this and follow-up if symptoms persist and at that time we would cauterize him. I reviewed what cauterization would entail and the fact that he would require 48 hours of no vigorous activity. 3. EUSTACHIAN TUBE DYSFUNCTION - patient does have some mild symptoms of eustachian tube dysfunction. I have not prescribed Flonase due to the side effects of epistaxis. I would like to first get epistaxis under control. I recommended auto insufflation and the use of an antihistamine. All questions were answered. Complete encounter includes: Review of past medical records Time spent with patient including obtaining history, physical exam, shared decision making, procedures, counseling and answering questions. Post visit documentation to include but not limited to medication and lab ordering. Total time = Minimum 55 min MEDICATION RECONCILIATION Outpatient: Has the patient been taking medications as documented in the EMLR? YES: The patient has been taking medications as documented in the EMLR. Essential Medication List for Review used to complete this medication reconciliation. INCLUDED IN THIS LIST: Alphabetical list of active outpatient prescriptions dispensed from this [facility] (local) and dispensed from another [place] or [facility] facility (remote) as well as inpatient orders [...] whether with a VA or non-VA provider. JLV Link Data on this list may not be complete. Please check JLV. Allergies/ADRs (Tool #5) FACILITY ALLERGY/ADR -------- No Remote Allergy/ADR Data available for this patient [facility] PRAVASTATIN Med Recon [facility] (Tool #1) INCLUDED IN THIS LIST: Alphabetical list of active outpatient prescriptions dispensed from this [place] (local) and dispensed from another [place] or [facility] facility (remote) as well as inpatient orders (local pending and active), local clinic medications, locally documented non-VA medications, and local prescriptions that have or been discontinued in the past 90 days. Non-VA Meds Last Documented On: Feb 26, 2019 NOTE The display of VA prescriptions dispensed from another VA or [facility] facility (remote) is limited to active outpatient prescription entries matched to National Drug File at the originating site and may not include some items such as investigational drugs, compounds, etc. NOT INCLUDED IN THIS LIST: Medications self-entered by the patient into personal health records (i.e. [employer]) are NOT included in this list. Non-VA medications documented outside this [place], remote inpatient orders (regardless of status) and remote clinic medications are NOT included in this list. The patient and provider must always discuss medications the patient is taking, regardless of where the medication was dispensed or obtained. Non-VA ALLOPURINOL 300MG TAB TAKE ONE TABLET BY MOUTH ONCE DAILY Patient wants to buy from Non-VA pharmacy. Medication prescribed by Non-VA provider. Non-VA FISH OIL 1000MG (500MG DHA/EPA) CAP TAKE 1 CAPSULE BY MOUTH ONCE DAILY Medication prescribed by Non-VA provider. Non-VA LISINOPRIL 5MG TAB TAKE ONE TABLET BY MOUTH ONCE DAILY Non-VA medication recommended by VA provider. Patient wants to buy from Non-VA pharmacy. Non-VA MULTIVITAMIN CAP/TAB TAKE ONE TABLET BY MOUTH ONCE DAILY Medication prescribed by Non-VA provider. SUPPLIES /jozef/ Ab Stallworth MD Otolaryngology Signed: 04/03/2024 10:18 AB STALLWORTH [facility]
--- OUTSIDE RECORDS SUMMARY | 2024-04-16 13:43 | XMS_ITS | Encounter Summary ---
Author Name [facility] [facility] [place] Address [address] [place] [address] Care Team Providers Care Insurance Assistant Name Role Phone CRISPIN GOMEZ Primary Care Provider Unavaila ble Insurance Providers: [...] Garcia's Name Patient's Relationship to Policy Garcia [facility] CE ORGANIZAT ION [facility] MATER IALS Jun 05, 2017 [id number] [phone] JAMES LIN JR PATIENT ANTHEM BCBS OF [facility] ASPHA LT Jun 05, 2017 [id number] [phone] JAMES LIN JR PATIENT ANTHEM BCBS OF [place] (BLUECARD) [facility] CE ORGANIZAT ION [facility] MAT[facility] Jun 05, 2017 [id number] [phone] JAMES LIN JR [facility]IENT [facility] CONST RUCT Jun 05, 2017 [id number] JAMES LIN JR PATIENT [place] PRESCRIPT ION [place] OF [place] Feb 13, 2022 [id number] LIEN LIN PATIENT [place] PRESCRIPT [facility]ON [facility] Jun 05, 2017 [id number] JAMES LIN JR PATIENT Selected Encounter This section includes the information on record at [place] for the Encounter. Date/Time Encounter Type Encounter Description Reason Pro vider Source May 25, 2023 02:10 PM Outpatient Encounter ADMIN PAT ACTIVTIES (MASNONCT) I[facility] Encounter Template Text not used by [place] Plan of Treatment: Future Appointments (+ 6 months) and Future Tests (+/- 45 days) The Plan of Treatment section includes future care activities for the patient from all [place] treatmentfacilities. This section includes future appointments and future orders which are active, pending or scheduled. Future Appointments This section includes appointments that were scheduled to occur 6 months from the date of the Encounter, up to a maximum of 20 appointments. The data comes from all [place] treatment facilities. Appointment Date/Time Appointment Type Appointme nt Facility Name Jun 12, 2023 10:00 AM AMBULATORY - NONE [facility] Social History: Smoking Status (Most current) and Tobacco Use (All prior to encounter date) This section includes the most current, and the historical, smoking and tobacco- related health factors from the [place] facility where the Encounter took place. Current Smoking Status This section includes the most current smoking, or tobacco-related health factor, from the [place] facility where the Encounter took place. Date/Time Current Smoking Status Comment Facil ity Feb 02, 2023 08:30 AM VA-TOBACCO FORMER USER [facility] Tobacco Use History This section includes a history of the smoking, or tobacco-related health factors, that were collected on or before the date of the Encounter. The data comes from the [place] facility where the Encounter took place. Date/Time Smoking Status/Tobacco Use Comment F acility Feb 02, 2023 08:30 AM VA-TOBACCO QUIT 15 YRS OR MORE [facility] Jan 28, 2022 08:30 AM VA-TOBACCO FORMER USER [facility] Jan 28, 2022 08:30 AM VA-TOBACCO QUIT 5 TO < 15 YRS [facility] Jan 29, 2021 08:30 AM VA-TOBACCO FORMER USER [facility] Jan 29, 2021 08:30 AM VA-TOBACCO QUIT 5 TO < 15 YRS [facility] Feb 22, 2019 01:36 PM VA-TOBACCO FORMER USER [facility] Feb 22, 2019 01:36 PM VA-TOBACCO QUIT 5 TO < 15 YRS [facility] Encounter Notes: All associated encounter notes This section contains the clinical notes associated to the Encounter. Date/Time Encounter Note(s) Provider Source May 25, 2023 02:37 PM ADDENDUM: LOCAL TITLE: Addendum STANDARD TITLE: ADDENDUM DATE OF NOTE: MAY 25, 2023@14:37:20 ENTRY DATE: MAY 25, 2023@14:37:20 AUTHOR: AYSHA ROCA COSIGNER: URGENCY: STATUS: COMPLETED Talked with Vet, he would like consultation for alternatives to CPAP /es/ Aysha BEVERLY RN CNL Primary Care RN Signed: 05/25/2023 14:37 Receipt Acknowledged By: 05/25/2023 14:40 /jozef/ ESTER Wong DNP, PJ Primary Care Nurse Practitioner === --- Original Document --- 05/25/23 CCC: SCHEDULING ADMINISTRATION: PLEASE CALL [phone] IN REF TO PT NEEDS A LETTER FROM PCP STATING HE NO LONGER NEEDS A SLEEP APNEA MACHINE IN ORDER TO GET HIS DOT . /es/ MISTY RECINOS Signed: 05/25/2023 14:12 Receipt Acknowledged By: 05/25/2023 14:23 /jozef/ ESTER Wong DNP, PJ Primary Care Nurse Practitioner 05/25/2023 14:22 /elian BEVERLY RN CNL Primary Care RN 05/25/2023 ADDENDUM STATUS: COMPLETED Defer to PCP for requested note, please see PCP visit 02/02/23 /elian Roca MSN RN CNL Primary Care RN Signed: 05/25/2023 14:22 05/25/2023 ADDENDUM STATUS: COMPLETED Please let [facility] know, i can not write stating he does not need CPAP. In fact, the consult from the sleep specialist advised CPAP. I can place a consult for him to follow back with the sleep specialist for alternatives to CPAP. /jozef/ ESTER Wong DNP, NANCYL Primary Care Nurse Practitioner Signed: 05/25/2023 14:25 Receipt Acknowledged By: 05/25/2023 14:28 /elian Roca MSN RN CNL Primary Care RN 05/25/2023 ADDENDUM STATUS: COMPLETED Attempted to contact julia Blancas MARIAELENA with RN direct ext. Will await return call. /elian BEVERLY RN CNL Primary Care RN Signed: 05/25/2023 14:28 AYSHA ROCA [facility] May 25, 2023 02:23 PM ADDENDUM: LOCAL TITLE: Addendum STANDARD TITLE: ADDENDUM DATE OF NOTE: MAY 25, 2023@14:23:54 ENTRY DATE: MAY 25, 2023@14:23:55 AUTHOR: CRISPIN GOMEZ COSIGNER: URGENCY: STATUS: COMPLETED Please let [facility] know, i can not write stating he does not need CPAP. In fact, the consult from the sleep specialist advised CPAP. I can place a consult for him to follow back with the sleep specialist for alternatives to CPAP. /ESTER Teran DNP, PJ Primary Care Nurse Practitioner Signed: 05/25/2023 14:25 Receipt Acknowledged By: 05/25/2023 14:28 /elian BEVERLY RN CNL Primary Care RN === --- Original Document --- 05/25/23 CCC: SCHEDULING ADMINISTRATION: PLEASE CALL [phone] IN REF TO PT NEEDS A LETTER FROM PCP STATING HE NO LONGER NEEDS A SLEEP APNEA MACHINE IN ORDER TO GET HIS DOT . /jozef/ MISTY FARR JORJE Signed: 05/25/2023 14:12 Receipt Acknowledged By: 05/25/2023 14:23 /jozef/ ESTER Wong DNP, CNL Primary Care Nurse Practitioner 05/25/2023 14:22 /es/ Aysha Roca MSN RN CNL Primary Care RN 05/25/2023 ADDENDUM STATUS: COMPLETED Defer to PCP for requested note, please see PCP visit 02/02/23 /elian Roca MSN RN CNL Primary Care RN Signed: 05/25/2023 14:22 05/25/2023 ADDENDUM STATUS: UNSIGNED You may not VIEW this UNSIGNED Addendum. CRISPIN GOMEZ [facility] May 25, 2023 02:10 PM ADMINISTRATIVE NOTE: LOCAL TITLE: CCC: SCHEDULING ADMINISTRATION STANDARD TITLE: ADMINISTRATIVE NOTE DATE OF NOTE: MAY 25, 2023@14:10 ENTRY DATE: MAY 25, 2023@14:10:27 AUTHOR: CHIKAMISTY BRIDGES EXP COSIGNER: URGENCY: STATUS: COMPLETED CCC: SCHEDULING ADMINISTRATION Has ADDENDA PLEASE CALL [phone] IN REF TO PT NEEDS A LETTER FROM PCP STATING HE NO LONGER NEEDS A SLEEP APNEA MACHINE IN ORDER TO GET HIS DOT . /jozef/ MISTY FARR JORJE Signed: 05/25/2023 14:12 Receipt Acknowledged By: 05/25/2023 14:23 /jozef/ ESTER Wong DNP, CNL Primary Care Nurse Practitioner 05/25/2023 14:22 /es/ Aysha Roca MSN RN CNL Primary Care RN 05/25/2023 ADDENDUM STATUS: COMPLETED Defer to PCP for requested note, please see PCP visit 02/02/23 /elian Roca MSN RN CNL Primary Care RN Signed: 05/25/2023 14:22 05/25/2023 ADDENDUM STATUS: COMPLETED Please let [facility] know, i can not write stating he does not need CPAP. In fact, the consult from the sleep specialist advised CPAP. I can place a consult for him to follow back with the sleep specialist for alternatives to CPAP. /jozef/ Crispin Gomez DNP, ESTER, PJ Primary Care Nurse Practitioner Signed: 05/25/2023 14:25 Receipt Acknowledged By: 05/25/2023 14:28 /jozef/ Aysha BEVERLY RN CNL Primary Care RN 05/25/2023 ADDENDUM STATUS: COMPLETED Attempted to contact Vet, left VM with RN direct ext. Will await return call. /elian BEVERLY RN CNL Primary Care RN Signed: 05/25/2023 14:28 05/25/2023 ADDENDUM STATUS: COMPLETED Talked with Vet, he would like consultation for alternatives to CPAP /elian BEVERLY RN CNL Primary Care RN Signed: 05/25/2023 14:37 Receipt Acknowledged By: 05/25/2023 14:40 /ESTER Teran DNP, NANCYL Primary Care Nurse Practitioner 05/25/2023 ADDENDUM STATUS: COMPLETED consult to sleep specialist /ESTER Teran DNP, PJ Primary Care Nurse Practitioner Signed: 05/25/2023 14:49 MISTY FARR [facility]
--- OUTSIDE RECORDS SUMMARY | 2024-04-16 13:43 | XMS_ITS | Continuity of Care Document ---
Author Name [facility] Organization [facility] Care Team Providers Care Antique Clocks Repairer Name Role Phone [facility] Unavailable Unavailable Problems Combined list of problems from Department of Defense and 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 It does not include entries that were removed or entered in error. Problem Status Onset Date Problem Type Date of Resolution Comments Source Family history of ischemic heart disease Active Condition Feb 26, 2019 Entered By: KJ BRAVO Comment: father age 63 PR [facility] Gout (SCT 46019095) Active Condition [facility] Hearing Loss (SCT 72863497) Active Condition [facility] Hematuria Active Condition [facility] HTN - Hypertension (SCT 41347560) Active Condition [facility] Hyperlipidemia (SCT 38204255) Active Condition [facility] Knee Pain (SCT 31304606) Active Condition [facility] Low Back Pain (SCT 549174885) Active Condition [facility] Multiple nodules of lung Active Condition [facility] Snoring Active Condition [facility] Tinnitus Active Condition [facility] Tobacco User (SCT [id number]) Active Condition [facility] Diagnosis: ICD-10-CM H90.3 Sensorineural hearing loss, bilateral Active Diagnosis [facility] Diagnosis: ICD-10-CM R04.0 Epistaxis Active Diagnosis [facility] Diagnosis: ICD-10-CM H93.12 Tinnitus, left ear Active Diagnosis [facility] Diagnosis: ICD-10-CM R06.83 Snoring Active Diagnosis [facility] Medications Combined list of outpatient medications from Department of [facility] and 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Medications provided include 1) outpatient medications from the last 15 months, and 2) patient-reported medications. Medication Details Route Status Patient Instructions Prescription Expires Prescription Number Last Dispense Date Ordering Provider Order Date Order Qty Source ALLOPURINOL 300MG TAB TAKE ONE TABLET BY MOUTH ONCE DAILY ORAL ACTIVE BRAVOCRISPIN 2019 [facility] FISH OIL 1000MG (500MG DHA/EPA) CAP,ORAL TAKE 1 CAPSULE BY MOUTH ONCE DAILY ORAL ACTIVE BRAVOCRISPIN DOMINIQUE 2019 [facility] LISINOPRIL 5MG TAB TAKE ONE TABLET BY MOUTH ONCE DAILY ORAL ACTIVE BRAVO, CRISPIN Araiza 2019 [facility] MULTIVITAMI NS CAP/TAB TAKE ONE TABLET BY MOUTH ONCE DAILY ORAL ACTIVE BRAVO, CRISPIN Araiza 2019 [facility] SODIUM CHLORIDE 0.65% SOLN,NASAL SPRAY INSTILL 2 SPRAYS INTO EACH NOSTRIL EVERY 6 HOURS NEEDED FOR DRYNESS OF THE NOSE NASAL ACTIVE 04/04/2025 [id number] 5 DOMINIC RODRIGUEZ R 2024 45 [facility] SODIUM CHLORIDE GEL,NASAL USE SUFFICIE NT AMOUNT IN THE NOSE AT BEDTIME FOR DRY NOSE NASAL ACTIVE 04/04/2025 [id number] 5 DOMINIC RODRIGUEZ R 2024 30 [facility] Allergies, Adverse Reactions, Alerts Combined list of allergies from Department of Defense and 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 It does not include entries that were removed or entered in error. Substance Category Reaction Severity Reaction type Status Date Reported Comments Source PRAVASTATIN Propensity to adverse reactions to drug (finding) Delirium active 0 [facility] Immunizations Combined list of available immunizations from the Department of [facility] and 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 Immunization Series Date Given Administered By Site Reaction Lot Number CVX Code Drug Asphalt Still Operator Status Comments Source PNEUMOCOCCAL POLYSACCHARID E PPV23 2019 33 complet ed [facility] TDAP 2019 115 complet ed Site: Left Deltoid [facility] TD(ADULT) UNSPECIFIED FORMULATION 2015 139 complet ed Community Provider [facility] [place] [facility] Results Combined list of recent chemistry, hematology and other laboratory results from Department of Defense and Veterans Affairs, ranging from 15 months to all on record, depending upon the facility. Order Name Results Value Reference Range Date Interpretation Specimen Comments Source HEPATITI S B SURFACE ANTIBODY (HBsAb)- WH HEPATITIS B VIRUS SURFACE AB [PRESENCE] IN SERUM BY IMMUNOASSA Y Non Reactive 02/04 Specimen Type: SERUM No comment entered. Ordering Provider: KJ BRAVO Report Released Date/Time: Jan 23, 2024 04:02 PM Reporting Lab: [facility] [place] [address] [address] Performing Lab: [facility] [place] [address] [address] [facility] CBC LEUKOCYTES [#/VOLUME] IN BLOOD BY AUTOMATED COUNT 7.95 10*3/uL 4.50 - 11.00 02/04 Specimen Type: BLOOD No comment entered. Ordering Provider: KJ BRAVO Report Released Date/Time: Jan 23, 2024 04:02 PM Reporting Lab: [facility] [place] [address] [address] Performing Lab[facility] [place] [facility] [address] [address] [facility] [place] [facility] CBC ERYTHROCYT ES [#/VOLUME] IN BLOOD BY AUTOMATED COUNT 5.14 10*6/uL 4.23 - 5.66 02/04 Specimen Type: BLOOD No comment entered. Ordering Provider: KJ BRAVO Report Released Date/Time: Jan 23, 2024 04:02 PM Reporting Lab: [facility] [place] [address] [address] Performing Lab: [facility] [place] [address] [address] [facility] [place] [facility] CBC HEMOGLOBIN [MASS/VOLU ME] IN BLOOD 14.9 g/dL 12.8 - 17 02/04 Specimen Type: BLOOD No comment entered. Ordering Provider: KJ BRAVO Report Released Date/Time: Jan 23, 2024 04:02 PM Reporting Lab: [facility] [place] [facility] [address] [address] Performing Lab: [facility] [address] [address] [facility] [place] [facility] CBC HEMATOCRIT [VOLUME FRACTION] OF BLOOD BY AUTOMATED COUNT 42.4 39.2 - 50.4 02/04 Specimen Type: BLOOD No comment entered. Ordering Provider: KJ BRAVO Report Released Date/Time: Jan 23, 2024 04:02 PM Reporting Lab: [facility] [place] [address] [address] Performing Lab: [facility] [place] [address] [address] [facility] [place] [facility] CBC MCV [ENTITIC VOLUME] BY AUTOMATED COUNT 82.5 fL 82 - 99 02/04 Specimen Type: BLOOD No comment entered. Ordering Provider: KJ BRAVO Report Released Date/Time: Jan 23, 2024 04:02 PM Reporting Lab: [facility] [place] [address] [address] Performing Lab: [facility] [address] [address] [facility] [place] [facility] CBC MCHC [MASS/VOLU ME] BY AUTOMATED COUNT 35.1 g/dL 30.8 - 35.1 02/04 Specimen Type: BLOOD No comment entered. Ordering Provider: KJ BRAVO Report Released Date/Time: Jan 23, 2024 04:02 PM Reporting Lab: [facility] [place] [address] [address] Performing Lab: [facility] [place] [address] [place] [address] [facility] [place] [facility] CBC PLATELETS [#/VOLUME] IN BLOOD BY AUTOMATED COUNT 298 10*3/uL 140 - 360 02/04 Specimen Type: BLOOD No comment entered. Ordering Provider: KJ BRAVO Report Released Date/Time: Jan 23, 2024 04:02 PM Reporting Lab: [facility] [place] [address] [address] Performing Lab: [facility] [place] [facility] [address] [address] [facility] [place] [facility] CBC ERYTHROCYT E DISTRIBUTI ON WIDTH [RATIO] BY AUTOMATED COUNT 12.7 12.0 - 16.0 02/04 Specimen Type: BLOOD No comment entered. Ordering Provider: KJ BRAVO Report Released Date/Time: Jan 23, 2024 04:02 PM Reporting Lab: [facility] [place] [address] [address] Performing Lab: [facility] [place] [address] [address] [facility] [place] [facility] CBC MCH [ENTITIC MASS] BY AUTOMATED COUNT 29.0 pg 26.2 - 32.6 02/04 Specimen Type: BLOOD No comment entered. Ordering Provider: KJ BRAVO Report Released Date/Time: Jan 23, 2024 04:02 PM Reporting Lab: [facility] [place] [address] [address] Performing Lab: [facility] [place] [address] [address] [facility] [place] [facility] BASIC METABOLI C PANEL (non-fas ting) UREA NITROGEN [MASS/VOLU ME] IN SERUM OR PLASMA 17 mg/dL 7 - 25 02/04 Specimen Type: SERUM No comment entered. Ordering Provider: KJ BRAVO Report Released Date/Time: Jan 23, 2024 04:02 PM Reporting Lab: [facility] [place] [address] [place] [address] Performing Lab: [facility] [address] [address] [facility] BASIC METABOLI C PANEL (non-fas ting) GLUCOSE [MASS/VOLU ME] IN SERUM OR PLASMA 88 mg/dL 65 - 100 02/04 Specimen Type: SERUM No comment entered. Ordering Provider: KJ BRAVO Report Released Date/Time: Jan 23, 2024 04:02 PM Reporting Lab: [facility]USE[facility] [address] [address] Performing Lab: [facility]ITALRHILL [facility] SERVICESN [facility]ITALUSE[address] [address] [facility] BASIC METABOLI C PANEL (non-fas ting) SODIUM [MOLES/VOL UME] IN SERUM OR PLASMA 139 mmol/L 135 - 145 02/04 Specimen Type: SERUM No comment entered. Ordering Provider: KJ BRAVO Report Released Date/Time: Jan 23, 2024 04:02 PM Reporting Lab: [facility]ITALRINFIR[facility]PITALTRN [address] [address] Performing Lab: [facility]ITALRINFIR[facility] HOSPITALTRN [facility]USE[address] [address] [facility] BASIC METABOLI C PANEL (non-fas ting) POTASSIUM [MOLES/VOL UME] IN SERUM OR PLASMA 4.8 mmol/L 3.5 - 5.0 02/04 Specimen Type: SERUM No comment entered. Ordering Provider: KJ BRAVO Report Released Date/Time: Jan 23, 2024 04:02 PM Reporting Lab: [facility] [address] Performing Lab: [facility]ITALRINFIRMARY LT[facility] HOSPITALTRN [facility]USE[address] [address] [facility] BASIC METABOLI C PANEL (non-fas ting) CHLORIDE [MOLES/VOL UME] IN SERUM OR PLASMA 104 mmol/L 100 - 110 02/04 Specimen Type: SERUM No comment entered. Ordering Provider: KJ BRAVO Report Released Date/Time: Jan 23, 2024 04:02 PM Reporting Lab: [address] [address] Performing Lab: [address] [address] [facility] BASIC METABOLI C PANEL (non-fas ting) CARBON DIOXIDE, TOTAL [MOLES/VOL UME] IN SERUM OR PLASMA 26 meq/L 20 - 30 02/04 Specimen Type: SERUM No comment entered. Ordering Provider: KJ BRAVO Report Released Date/Time: Jan 23, 2024 04:02 PM Reporting Lab: [address] [address] Performing Lab: [address] [address] [facility] BASIC METABOLI C PANEL (non-fas ting) CREATININE [MASS/VOLU ME] IN SERUM OR PLASMA 0.94 mg/dL 0.50 - 1.40 02/04 Specimen Type: SERUM No comment entered. Ordering Provider: KJ BRAVO Report Released Date/Time: Jan 23, 2024 04:02 PM Reporting Lab: [address] [address] Performing Lab: [address] [address] [facility] BASIC METABOLI C PANEL (non-fas ting) GLOMERULAR FILTRATION RATE/1.73 SQ M.PREDICTE D [VOLUME RATE/AREA] IN SERUM, PLASMA OR BLOOD BY CREATININE -BASED FORMULA (CKD-EPI 2020) >90mL/mi n 60 02/04 Specimen Type: SERUM No comment entered. Ordering Provider: KJ BRAVO Report Released Date/Time: Jan 23, 2024 04:02 PM Reporting Lab: [facility] [place] [facility] [address] [address] Performing Lab: [facility] [place] [facility] [address] [address] [facility] [facility] LIPID PANEL, NON FASTING CHOLESTERO L [MASS/VOLU ME] IN SERUM OR PLASMA 264 mg/dL 02/04 H Specimen Type: SERUM No comment entered. Ordering Provider: KJ BRAVO Report Released Date/Time: Jan 23, 2024 04:02 PM Reporting Lab: [facility] [place] [facility] [address] [address] Performing Lab: [facility]RL [facility]ITAL[facility]ETS [facility] [address] [address] [facility]ITALRL TRN [facility]ITALUSE [facility] LIPID PANEL, NON FASTING TRIGLYCERI DE [MASS/VOLU ME] IN SERUM OR PLASMA 214 mg/dL 0 - 150 02/04 H Specimen Type: SERUM No comment entered. Ordering Provider: KJ BRAVO Report Released Date/Time: Jan 23, 2024 04:02 PM Reporting Lab: [facility]ITALRL TRN [facility]ITALUSETS [address] [address] Performing Lab: [facility]ITALRL W[facility]N [facility]ITALUSETS [address] [address] [facility]ITALRL TRN [facility]ITALUSE [facility] LIPID PANEL, NON FASTING CHOLESTERO L IN LDL [MASS/VOLU ME] IN SERUM OR PLASMA BY ALVERTO Jacques 171 mg/dL 0 - 129 02/04 H Specimen Type: SERUM No comment entered. Ordering Provider: KJ BRAVO Report Released Date/Time: Jan 23, 2024 04:02 PM Reporting Lab: [facility] [place] [facility] [address] [address] Performing Lab: [facility] [address] [address] [facility]ITALRL TRN [facility]ENTERCHUSE [facility] LIPID PANEL, NON FASTING CHOLESTERO L.TOTAL/CH OLESTEROL IN HDL [MASS RATIO] IN SERUM OR PLASMA 5.3 02/04 Specimen Type: SERUM No comment entered. Ordering Provider: KJ BRAVO Report Released Date/Time: Jan 23, 2024 04:02 PM Reporting Lab: [facility] [address] [address] Performing Lab: [facility] [place] [facility] [address] [address] [facility] [place] [facility] LIPID PANEL, NON FASTING CHOLESTERO L IN HDL [MASS/VOLU ME] IN SERUM OR PLASMA 50 mg/dL 40 - 60 02/04 Specimen Type: SERUM No comment entered. Ordering Provider: KJ BRAVO Report Released Date/Time: Jan 23, 2024 04:02 PM Reporting Lab: [facility] [place] [facility] [address] [address] Performing Lab: [facility] [place] [address] [address] [facility] [place] [facility] LIVER FUNCTION PROTEIN [MASS/VOLU ME] IN SERUM OR PLASMA 7.3 g/dL 6.0 - 8.3 02/04 Specimen Type: SERUM No comment entered. Ordering Provider: KJ BRAVO Report Released Date/Time: Jan 23, 2024 04:02 PM Reporting Lab: [facility] [place] [facility] [address] [address] Performing Lab: [facility] [facility] [address] [address] [facility] [place] [facility] LIVER FUNCTION ALBUMIN [MASS/VOLU ME] IN SERUM OR PLASMA 4.3 g/dL 3.5 - 5.0 02/04 Specimen Type: SERUM No comment entered. Ordering Provider: KJ BRAVO Report Released Date/Time: Jan 23, 2024 04:02 PM Reporting Lab: [facility] [place] [facility] [address] [address] Performing Lab: [facility] [address] [address] [facility] [place] [facility] LIVER FUNCTION ALKALINE PHOSPHATAS E [ENZYMATIC ACTIVITY/V OLUME] IN SERUM OR PLASMA 67 U/L 40 - 150 02/04 Specimen Type: SERUM No comment entered. Ordering Provider: KJ BRAVO Report Released Date/Time: Jan 23, 2024 04:02 PM Reporting Lab: [facility]ITALUSE[address] [address] Performing Lab: [facility] [address] [address] [facility]ITALRL TRN [facility]ITALUSE [facility] LIVER FUNCTION ASPARTATE AMINOTRANS FERASE [ENZYMATIC ACTIVITY/V OLUME] IN SERUM OR PLASMA 21 U/L 5 - 34 02/04 Specimen Type: SERUM No comment entered. Ordering Provider: KJ BRAVO Report Released Date/Time: Jan 23, 2024 04:02 PM Reporting Lab: [facility]ITALRINFIRMARY LTAC HOSPITALTRN [facility]USE[address] [address] Performing Lab: [facility] [place] [address] [address] [facility]ITALRL TRN [facility]ITALUSE [facility] LIVER FUNCTION ALANINE AMINOTRANS FERASE [ENZYMATIC ACTIVITY/V OLUME] IN SERUM OR PLASMA 24 U/L 02/04 Specimen Type: SERUM No comment entered. Ordering Provider: KJ BRAVO Report Released Date/Time: Jan 23, 2024 04:02 PM Reporting Lab: [facility]ITAL[facility] TRN [facility]ITALUSETS [address] [address] Performing Lab: [facility] [place] [address] [address] [facility]PITALRHILL [facility] SERVICESN [facility]ITALUSE [facility] LIVER FUNCTION BILIRUBIN. TOTAL [MASS/VOLU ME] IN SERUM OR PLASMA 0.5 mg/dL 0.2 - 1.2 02/04 Specimen Type: SERUM No comment entered. Ordering Provider: KJ BRAVO Report Released Date/Time: Jan 23, 2024 04:02 PM Reporting Lab: [facility]N [facility]ITALUSE[address] [address] Performing Lab: [facility] [place] [facility] [address] [address] [facility] [place] [facility] PSA PROSTATE SPECIFIC AG [MASS/VOLU ME] IN SERUM OR PLASMA 0.81 ng/mL 0.00 - 4.00 02/04 Specimen Type: SERUM No comment entered. Ordering Provider: KJ BRAVO Report Released Date/Time: Jan 23, 2024 04:02 PM Reporting Lab: [facility] [place] [facility] [address] [address] Performing Lab: [facility] [place] [facility] [address] [address] [facility] [place] [facility] THYROID T4 FREE(FT4 ) THYROXINE (T4) FREE [MASS/VOLU ME] IN SERUM OR PLASMA 0.95 ng/dL 0.6 - 1.6 02/02 Specimen Type: SERUM No comment entered. Ordering Provider: KJ BRAVO Report Released Date/Time: Jan 16, 2023 10:39 AM Reporting Lab: [facility] [place] [facility] [address] [address] Performing Lab: [facility] [place] [facility] [address] [facility] [address] [facility] [place] [facility] CBC LEUKOCYTES [#/VOLUME] IN BLOOD BY AUTOMATED COUNT 6.92 10*3/uL 4.50 - 11.00 02/02 Specimen Type: BLOOD No comment entered. Ordering Provider: KJ BRAVO Report Released Date/Time: Jan 16, 2023 10:39 AM Reporting Lab: [facility] [place] [facility] [address] [address] Performing Lab: [facility] [place] [facility] [address] [address] [facility] [place] [facility] CBC ERYTHROCYT ES [#/VOLUME] IN BLOOD BY AUTOMATED COUNT 4.95 10*6/uL 4.23 - 5.66 02/02 Specimen Type: BLOOD No comment entered. Ordering Provider: KJ BRAVO Report Released Date/Time: Jan 16, 2023 10:39 AM Reporting Lab: [facility] [place] [facility] [address] [address] Performing Lab: [facility] [place] [facility] [address] [address] [facility] [place] [facility] CBC HEMOGLOBIN [MASS/VOLU ME] IN BLOOD 14.2 g/dL 12.8 - 17 02/02 Specimen Type: BLOOD No comment entered. Ordering Provider: KJ BRAVO Report Released Date/Time: Jan 16, 2023 10:39 AM Reporting Lab: [facility] [place] [facility] [address] [address] Performing Lab: [facility] [place] [facility] [address] [address] [facility] [place] [facility] CBC HEMATOCRIT [VOLUME FRACTION] OF BLOOD BY AUTOMATED COUNT 41.1 39.2 - 50.4 02/02 Specimen Type: BLOOD No comment entered. Ordering Provider: KJ BRAVO Report Released Date/Time: Jan 16, 2023 10:39 AM Reporting Lab: [facility] [place] [facility] [address] [address] Performing Lab: [facility] [place] [facility] [address] [address] [facility] [place] [facility] CBC MCV [ENTITIC VOLUME] BY AUTOMATED COUNT 83.0 fL 82 - 99 02/02 Specimen Type: BLOOD No comment entered. Ordering Provider: KJ BRAOV Report Released Date/Time: Jan 16, 2023 10:39 AM Reporting Lab: [facility] [place] [facility] [address] [address] Performing Lab: [facility] [place] [facility] [address] [address] [facility] [place] [facility] CBC MCHC [MASS/VOLU ME] BY AUTOMATED COUNT 34.5 g/dL 30.8 - 35.1 02/02 Specimen Type: BLOOD No comment entered. Ordering Provider: KJ BRAVO Report Released Date/Time: Jan 16, 2023 10:39 AM Reporting Lab: [facility] [place] [facility] [address] [address] Performing Lab: [facility] [place] [facility] [address] [address] [facility] [place] [facility] CBC PLATELETS [#/VOLUME] IN BLOOD BY AUTOMATED COUNT 260 10*3/uL 140 - 360 02/02 Specimen Type: BLOOD No comment entered. Ordering Provider: KJ BRAVO Report Released Date/Time: Jan 16, 2023 10:39 AM Reporting Lab: [facility] [place] [facility] [address] [address] Performing Lab: [facility] [place] [address] [address] [facility] [place] [facility] CBC ERYTHROCYT E DISTRIBUTI ON WIDTH [RATIO] BY AUTOMATED COUNT 13.2 12.0 - 16.0 02/02 Specimen Type: BLOOD No comment entered. Ordering Provider: KJ BRAVO Report Released Date/Time: Jan 16, 2023 10:39 AM Reporting Lab: [facility] [place] [facility] [address] [address] Performing Lab: [facility] [place] [facility] [address] [address] [facility] [place] [facility] CBC MCH [ENTITIC MASS] BY AUTOMATED COUNT 28.7 pg 26.2 - 32.6 02/02 Specimen Type: BLOOD No comment entered. Ordering Provider: KJ BRAVO Report Released Date/Time: Jan 16, 2023 10:39 AM Reporting Lab: [facility] [place] [facility] [address] [address] Performing Lab: [facility] [place] [address] [address] [facility] [place] [facility] BASIC METABOLI C PANEL (fasting ) UREA NITROGEN [MASS/VOLU ME] IN SERUM OR PLASMA 17 mg/dL 7 - 25 02/02 Specimen Type: SERUM No comment entered. Ordering Provider: KJ BRAVO Report Released Date/Time: Jan 16, 2023 10:39 AM Reporting Lab: [facility] [address] [address] Performing Lab: [facility] [address] [address] [facility] BASIC METABOLI C PANEL (fasting ) GLUCOSE [MASS/VOLU ME] IN SERUM OR PLASMA 96 mg/dL 65 - 100 02/02 Specimen Type: SERUM No comment entered. Ordering Provider: KJ BRAVO Report Released Date/Time: Jan 16, 2023 10:39 AM Reporting Lab: [address] [id number] Performing Lab: [address] [address] [facility] BASIC METABOLI C PANEL (fasting ) SODIUM [MOLES/VOL UME] IN SERUM OR PLASMA 141 mmol/L 135 - 145 02/02 Specimen Type: SERUM No comment entered. Ordering Provider: KJ BRAVO Report Released Date/Time: Jan 16, 2023 10:39 AM Reporting [facility]: [facility] [address] [address] Performing Lab: [facility] [address] [address] [facility] BASIC METABOLI C PANEL (fasting ) POTASSIUM [MOLES/VOL UME] IN SERUM OR PLASMA 4.4 mmol/L 3.5 - 5.0 02/02 Specimen Type: SERUM No comment entered. Ordering Provider: KJ BRAVO Report Released Date/Time: Jan 16, 2023 10:39 AM Reporting Lab: [address] [address] Performing Lab: [facility] [address] [phone] [facility] [facility] BASIC METABOLI C PANEL (fasting ) CHLORIDE [MOLES/VOL UME] IN SERUM OR PLASMA 106 mmol/L 100 - 110 02/02 Specimen Type: SERUM No comment entered. Ordering Provider: KJ BRAVO Report Released Date/Time: Jan 16, 2023 10:39 AM Reporting Lab: [facility]USE[facility] [address] [address] Performing Lab: [facility]ITALRHILL [facility] [address] [address] [facility] BASIC METABOLI C PANEL (fasting ) CARBON DIOXIDE, TOTAL [MOLES/VOL UME] IN SERUM OR PLASMA 27 meq/L 20 - 30 02/02 Specimen Type: SERUM No comment entered. Ordering Provider: KJ BRAVO Report Released Date/Time: Jan 16, 2023 10:39 AM Reporting Lab: [facility]PITALRINFIRMARY LT[facility] HOSPITALTRN [facility]ITALUSE[address] [address] Performing Lab: [facility]ITALRINFIRMARY LTAC HOSPITALTRN [facility]USE[facility] [address] [address] [facility] BASIC METABOLI C PANEL (fasting ) CREATININE [MASS/VOLU ME] IN SERUM OR PLASMA 0.85 mg/dL 0.50 - 1.40 02/02 Specimen Type: SERUM No comment entered. Ordering Provider: KJ BRAVO Report Released Date/Time: Jan 16, 2023 10:39 AM Reporting Lab: [facility]ITAL[facility]USE[facility] [address] [address] Performing Lab: [facility]ITALRL TRN [facility]ITALUSE[address] [address] [facility] BASIC METABOLI C PANEL (fasting ) GLOMERULAR FILTRATION RATE/1.73 SQ M.PREDICTE D [VOLUME RATE/AREA] IN SERUM, PLASMA OR BLOOD BY CREATININE -BASED FORMULA (CKD-EPI 2020) >90mL/mi n 60 02/02 Specimen Type: SERUM No comment entered. Ordering Provider: KJ BRAVO Report Released Date/Time: Jan 16, 2023 10:39 AM Reporting Lab: [facility] [address] [address] Performing Lab: [facility] [place] [facility] [address] [address] [facility] TSH THYROTROPI N [UNITS/VOL UME] IN SERUM OR PLASMA 1.47 u[IU]/mL 0.35 - 5.00 02/02 Specimen Type: SERUM No comment entered. Ordering Provider: KJ BRAVO Report Released Date/Time: Jan 16, 2023 10:39 AM Reporting Lab: [facility] [place] [facility] [address] [address] Performing Lab: [facility] [place] [facility] [address] [address] [facility] Vital Signs Combined list of inpatient and outpatient Vital Signs from Department of Defense and Veterans Affairs, ranging from 12 months to all on record, depending upon the facility. Vital Sign Value Date Comments Source SYSTOLIC BLOOD PRESSURE 128 04/03/19 25 08:58:09 [facility] [place] [facility] DIASTOLIC BLOOD PRESSURE 82 025 08:58:09 [facility] [place] [facility] PULSE OXIMETRY 99 04/03/2024 08:58:09 [facility] WEIGHT 192 04/03/2024 08:58:09 [facility] [place] [facility] BMI 29 kg/m2 04/03/2024 08:58:09 [facility] PAIN 0 04/03/2024 08:58:09 [facility] [place] [facility] HEIGHT 68 04/03/2024 08:58:09 [facility] [place] [facility] TEMPERATURE 98.1 04/03/2024 08:58:09 [facility] PULSE 100 04/03/2024 08:58:09 [facility] RESPIRATION 16 04/03/2024 08:58:09 [facility] SYSTOLIC BLOOD PRESSURE 140 02/05/20 24 08:20:15 [facility] DIASTOLIC BLOOD PRESSURE 89 024 08:20:15 [facility] PULSE OXIMETRY 100 02/05/2024 08:20:15 [facility] WEIGHT 192 02/05/2024 08:20:15 [facility] BMI 29 kg/m2 02/05/2024 08:20:15 [facility] PAIN 0 02/05/2024 08:20:15 [facility] HEIGHT 68 02/05/2024 08:20:15 [facility] TEMPERATURE 97.6 02/05/2024 08:20:15 [facility] PULSE 72 02/05/2024 08:20:15 [facility] RESPIRATION 20 02/05/2024 08:20:15 [facility] Encounters Combined list of: 1) Encounters from Department of Veterans Affairs facilities going backup to the last 18 months, not all VA inpatient encounters are included; 2) Encounters from the Department of Defense facilities going backup to 280 months. Location Location Details Encounter Type Encounter Number Reason For Visit Attending Provider ADM Date DC Date Status Disposition Source [facility] Encounter [id number] 01/25 [facility] [id number] 02/02 [facility] OFFICE O/P EST LOW 20-29 MIN [id number] Diagnos is: ICD-10- CM R06.83 Snoring Shweta BRAVOIAM J 02/02 [facility] En[facility] [id number] 05/24 [facility] Encounter [id number] 06/11 [facility] OFF[place]/P EST HI 40 MIN [id number] Diagnos is: ICD-10- CM H93.12 Tinnitu s, left ear Shweta BRAVOIAM J 02/04 [facility] Out[facility] [id number] 02/11 [facility] Out[facility] En[facility] [id number] 02/26 [facility] OFF/OP CONSLTJ NEW/EST HI 55 [id number] Diagnos is: ICD-10- CM H93.12 Tinnitu s, left ear FAZAL RODRIGUEZ 04/03 [facility] [place] [facility] [place] NQHP OL DIG ASSMT&MGMT 5-10 [id number] Diagnos is: ICD-10- CM R04.0 Epistax is MAX HUFF IE 04/03 [place] [facility] HEARING AID XM&SLCTN BINAURL [id number] Diagnos is: ICD-10- CM H90.3 Sensori neural hearing loss, bilater MENDEZ Naranjo 04[facility]12 [facility] [place] [facility] Social History Combined list of available smoking, tobacco, and other social history from Department of Defense and 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 Social History Type Response Date Comment Sourc e Tobacco smoking status NHIS VA-TOBACCO NEVER USED OTHER TYPE 02/05/2024 [facility] [place] [facility] History of tobacco use [place]-TOBACCO USE FORMER CIGARETTES 02/05/2024 [facility] [place] [facility] History of tobacco use [place]-TOBACCO FORMER USER 02/02/2023 [facility] [place] [facility] History of tobacco use [place]-TOBACCO FORMER USER 01/28/2022 [facility] [place] [facility] History of tobacco use [place]-TOBACCO FORMER USER 01/29/2021 [facility] [place] [facility] History of tobacco use [place]-TOBACCO QUIT 5 TO < 15 YRS 02/22/2019 [facility] [place] [facility] Plan of Care List of future care activities from Department of 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 Additional future care activities may be listed in the Assessment and Plan section. Date/Time Care Activity Care Activity Detail Facili ty 05/08/2024 AMBULATORY - REHAB MEDICINE AMBULAT[facility] - [facility]
[2024-04-16 13:55] LABS: Basophils Percent Auto 0.5 % (0-2); Eosinophils Absolute Auto 0.1 X10*3/uL (0.0-0.4); Eosinophils Percent Auto 1.8 % (0-4); Hematocrit 40.5 % (42.0-52.0); Imm Gran Abs Auto 0.04 X10*3/uL (0.00-0.03); Imm Gran Pct Auto 0.5 % (0.0-0.4); Lymphocytes Absolute Auto 1.8 X10*3/uL (1.2-4.9); Lymphocytes Percent Auto 24.6 % (20-40); Mean Corpuscular HGB Conc 34.6 g/dl (31.0-36.0); Mean Corpuscular Hemoglobin 28.5 pg (27.0-33.0); Mean Corpuscular Volume 82.3 fL (80.0-98.0); Monocytes Absolute Auto 0.6 X10*3/uL (0.1-1.2); Monocytes Percent Auto 8.4 % (2-11); Neutrophils Absolute Auto 4.7 x10*3/uL (2.0-8.3); Neutrophils Percent Auto 64.2 % (45-73); Platelet Count 394 X10*3/uL (160-400); Red Blood Count 4.92 X10*6/uL (4.60-5.80); Red Cell Distribution Width 13.6 % (11.0-16.0); White Blood Count 7.4 X10*3/uL (4.8-10.8)
[2024-04-16 14:31] LABS: Alanine Aminotransferase 45 U/L (0-40); Albumin Level 4.2 g/dL (3.5-5.0); Alkaline Phosphatase 80 U/L (39-117); Anion Gap 11 (12-20); Aspartate Amino Transferase 27 U/L (5-37); Bilirubin Total 0.6 mg/dL (0.0-1.0); Blood Urea Nitrogen 19 mg/dL (9-16); Calcium 9.4 mg/dL (8.4-10.2); Carbon Dioxide 26 mmol/L (22-29); Chloride 107 mmol/L (96-108); Estimated Glomerular Filt Rate > 60; Glucose Random 90 mg/dL (60-115); Potassium 4.3 mmol/L (3.3-5.1); Sodium 140 mmol/L (135-145); Total Protein 7.5 g/dL (6.5-8.0)
[2024-04-16 14:52] LABS: Prostate Specific Antigen 1.21 ng/mL (<0.05-4.0)
[2024-04-16 15:29] LABS: Estimated Average Glucose 114 mg/dL; Hemoglobin A1C 138.6102 umol/L; Hemoglobin A1c % 5.6 % (<6.0); Total Hemoglobin (HGBA1C) 3725.0287 umol/L
== END 2024-04-16 11:01 | disposition home or self-care (01) ==
LOC: HO.MANLDS 11:00
PROVIDERS: Visit Provider Physician Assistant
DX: I10 Essential (primary) hypertension (principal); Z12.5 Encounter for screening for malignant neoplasm of prostate; Z13.1 Encounter for screening for diabetes mellitus
CPT/HCPCS: 36415; 80053; 83036; 84153; 85025